=== PATIENT | male | born 1970 | race Two or more races ===

== ENCOUNTER 2019-05-27 19:26 | Emergency (ER) | payer MEDICAID, OTHER ==
[~2019-05-27] VITALS: Ht 170.2 cm; Wt 72.6 kg
--- NOTE | 2019-05-27 19:44 | NUR ---
PT AAOX3 BIBRA 38 FOR C/O BODY PAIN. PLACED ON MONITOR AND PULSE OX. VSS. AWAITING MD FOR EVAL.
--- NOTE | 2019-05-27 19:55 | NUR ---
PT DANISH SPEAKING. PER EMT PT STATES HE HAS BEEN FAINTING X3 DAYS. TODAY AT NOON PATIENT FAINTED, HIT HIS HEAD AND LEFT LEG. Pt states he has L leg pain. Upon assessment pt has cyst since 1981. Placed on monitor and pulse ox. VSS. No neuro deficit, PERRLA. Will continue to monitor.
[2019-05-27] MEDS ORDERED: ACETAMINOPHEN 325 MG TABLET PO ONE (20:30)
[2019-05-27] MEDS ORDERED: ACETAMINOPHEN 325 MG TABLET ONE (20:33)
--- NOTE | 2019-05-28 06:30 | NUR ---
Patient given written and verbal discharge instructions. Patient verbalizes understanding of instructions. Patient is ambulatory with steady gait. Refuses offer of prison placement. Patient given list of available shelters in surrounding area.
[2019-05-28 07:06] VITALS: BP 129/75
== END 2019-05-28 07:06 | disposition home or self-care (01) ==
LOC: ER 19:29
DX: S09.8XXA Other specified injuries of head, initial encounter (principal); M25.562 Pain in left knee; Z72.89 Other problems related to lifestyle; Z59.0 Homelessness; Z98.890 Other specified postprocedural states; W19.XXXA Unspecified fall, initial encounter; Y93.89 Activity, other specified; Y92.89 Other specified places as the place of occurrence of the external cause; Y99.8 Other external cause status
CPT/HCPCS: 70450-TC; 73564-TC

== ENCOUNTER 2020-08-22 11:59 | Emergency (ER) | payer MEDICAID, OTHER ==
[~2020-08-22] VITALS: Ht 172.7 cm; Wt 80.7 kg
[2020-08-22] MEDS ORDERED: IBUPROFEN 600 MG TABLET ONE (12:21)
[2020-08-22] MEDS ORDERED: IBUPROFEN 600 MG TABLET PO ONE (12:30)
--- NOTE | 2020-08-22 12:34 | NUR ---
THOMAS FROM OUTSIDE A [facility] TO ER BED 12. ALERT, AWAKE AND INTOXICATED. ABLE TO FOLLOW COMMANDS AND ANSWER TO QUESTION. BROUGHT IN FOR CHEST PAIN AND ALCOHOL INTOXICATION. PER PT, HIS CP HAS BEEN GOING ON SINCE 1981. PT SMELLS OF ALCHOHOL. PLACED ON MONITOR. EKG DONE. MD WAS AT THE BEDSIDE FOR EVAL. ORDERS RECEIVED, NOTED ANS CARRIED OUT.
[2020-08-22 12:43] LABS: BASOPHILS # (AUTO) 0.2 /CMM (0.0-0.2); BASOPHILS % (AUTO) 4.6 % (0.0-2.0); EOSINOPHILS % (AUTO) 5.7 % (0.0-6.0); HEMATOCRIT 36 % (39-51); HEMOGLOBIN 11.7 g/dL (13.5-17.5); LYMPHOCYTES # (AUTO) 2.3 /CMM (0.8-4.8); MEAN CORPUSCULAR HGB CONC 33 g/dl (31.0-36.0); MEAN CORPUSCULAR VOLUME 83 fL (80-96); MONOCYTES # (AUTO) 0.5 /CMM (0.1-1.30); MONOCYTES % (AUTO) 9.2 % (2.0-12.0); NEUTROPHILS # (AUTO) 1.8 /CMM (1.8-8.9); NEUTROPHILS % (AUTO) 35.5 % (43.0-81.0); PLATELET COUNT (AUTO) 156 /CMM (150-450); WHITE BLOOD COUNT (AUTO) 5.1 K/uL (4.3-11.0)
[2020-08-22 12:50] LABS: CALCIUM, SERUM 8.3 mg/dL (8.5-10.1); CARBON DIOXIDE 27 mmol/L (21-32); CHLORIDE 98 mmol/L (98-107); CREATININE 0.8 mg/dL (0.6-1.3); GLUCOSE 108 mg/dL (74-106); SODIUM SERUM 138 mmol/L (136-145); UREA NITROGEN, BLOOD 8 mg/dL (7-18)
--- NOTE | 2020-08-22 13:00 | NUR ---
PT AMBULATED ASKING FOR FOOD. PT PROVIDED WITH MEAL.
--- NOTE | 2020-08-22 13:13 | NUR ---
Patient discharged to home in stable condition. Written and verbal after care instructions given. Patient verbalizes understanding of instruction. Pt ambulatory with a steady gait. Homeless waiver signed by the patient. Pt wanted to go already.
[2020-08-22 13:14] VITALS: BP 125/79
== END 2020-08-22 13:15 | disposition home or self-care (01) ==
LOC: ER 12:05
DX: R07.89 Other chest pain (principal); Z59.0 Homelessness
CPT/HCPCS: 36415; 71045-TC; 80048-TC; 84484-TC; 85025-TC

== ENCOUNTER → 2021-03-20 | Emergency (ER) | payer OTHER ==
[~2021-03-20] VITALS: Ht 170.2 cm; Wt 74.8 kg
[~2021-03-20] MED LIST: IBUP-1953 PO; IBUPROFEN 600 MG TABLET ONE; IBUPROFEN 600 MG TABLET PO ONE
[2021-03-20 15:04] VITALS: BP 145/81
--- NOTE | 2021-03-20 15:17 | NUR ---
Patient discharged to home in stable condition. Written and verbal after care instructions given. Patient verbalizes understanding of instruction.
== END | disposition home or self-care (01) ==
LOC: ER 15:24
DX: M79.605 Pain in left leg (principal); Z59.00 Homelessness unspecified